=== PATIENT | female | born 1950 | race Caucasian/White ===

== ENCOUNTER 2025-02-17 11:31 | Day surgery (SDC) | payer SELFPAY ==
[2025-02-17] VITALS (8 sets, daily range): BP systolic 119–178; BP diastolic 67–94; PULSE 57–82; RESP 16; TEMP 36.1–36.6; O2SAT 98–100; BMI 27.1
[2025-02-17] MEDS: Lactated Ringers 1,000 ML 15 ML IV (12:04)
--- NOTE | 2025-02-17 12:14 | PCM.HP.STD ---
[facility] - General General Date of Admission: 02/17/25 Date of Service: 02/17/25 Chief Complaint: Screening colonoscopy with fecal incontinence and alternating bowel habits HPI Narrative DAX GODOY, is a 74 F who presents for her first colonoscopy. *BGI established 12.19.24 pt presents with alternating bowel movements and intermittent fecal incontinence with diarrhea. Pt reports that she has never had a colonoscopy. States she has increased gas and will have pressure in her rectum and feels like she needs to have a bm, but is unable. [facility] Medical History Wears glasses Wears dentures Diabetes Arthritis Low iron Fatty liver Restless legs Dietary restriction Non-smoker Leg cramps High triglycerides High cholesterol Gallstones DM type 2 (diabetes mellitus, type 2) Hypertension Hearing problem Cataracts, both eyes Anemia Home Medications ?Medication ?Instructions ?Recorded ?Last Taken ?Type ferrous sulfate 325 mg (65 mg 325 mg PO BID 12/19/24 02/13/25 History iron) tablet (FeroSul) metformin 500 mg tablet 500 mg PO QDAY 12/19/24 Unknown History pioglitazone 15 mg tablet (Actos) 15 mg PO QDAY 12/19/24 Unknown History ramipril 5 mg capsule 5 mg PO QDAY 12/19/24 02/17/25 08:30 History triamterene 75 0.5 tab PO QDAY 12/19/24 Unknown History mg-hydrochlorothiazide 50 mg tablet Allergy/AdvReac Type Severity Reaction Status Date / Time No Known Allergies Allergy Verified 02/17/25 12:00 Family History Father Cancer Mother Cancer skin cancer Brother Bleeding disorder Cancer Sister Diabetes Hypertension Surgical History H/O hernia repair H/O: hysterectomy S/P appendectomy S/P cholecystectomy Hx of tonsillectomy Social History Smoking Status: Never smoker alcohol intake: never substance use type: does not use ROS Constitutional Constitutional: Denies fatigue, fever(s), poor appetite, weight gain or weight loss Gastrointestinal Gastrointestinal: Denies belching, bloating, change in bowel habits, change in stool character, chewing difficulty, coffee ground emesis, constipation, cramping, diarrhea, dyspepsia, dysphagia, early satiety, excessive flatus, fecal incontinence, heartburn, hematemesis, hematochezia, hemorrhoids, loose stools, melena, nausea, odynophagia, rectal bleeding, tenesmus, vomiting or weight changes Vital Signs Vital Signs Vital Signs: 02/17/25 12:01 02/17/25 12:01 Temperature 97.8 F Temperature Source Temporal Pulse Rate 82 Respiratory Rate 16 Respiratory Pattern Normal Blood Pressure 178/94 H Blood Pressure Mean 122 Blood Pressure Source Monitor Blood Pressure Position Sitting Blood Pressure Location Right Arm Pulse Ox 98 Oxygen Delivery Method Room Air Weight Weight: 143 lb 4.807 oz Body Mass Index (BMI) 27.1 Physical Exam Const alert, oriented x3, no apparent distress and healthy appearing General Appearance: cooperative GI normal to inspection, nondistended, normoactive bowel sounds, soft to palpation, non-tender and non-distended Percussion: normal to percussion Rectal Exam: deferred Assessment & Plan Assessment/Plan (1) Diarrhea: (2) Anemia: PLAN: Assessment and Plan Assessment and Plan (1) Anemia: Status: Acute (2) Diarrhea: Status: Acute Plan: 74-year-old very pleasant woman with past medical history of type 2 diabetes, hypertension and new onset iron deficiency anemia. She is about a colonoscopy in the past. She is also having diarrhea that was thought to possibly secondary to diabetes medicines. However she has a history of a large cystocele that was refractory to a presary. She is concerned that maybe she has a rectocele also. She is also concerned because of a new onset iron deficiency anemia. She has not seen any blood in her stool. She has never had a colonoscopy. Her weight has been stable. Differential diagnosis for new onset iron deficiency anemia an old one will be neoplasia involving the GI tract, celiac disease, angiodysplasia, malabsorption secondary to small bacterial overgrowth from diabetes. She will undergo colonoscopy to evaluate her lower GI tract. She was explained alternatives, risk and benefits include not withstanding bleeding, infection, sepsis, perforation, need for return to . She will have an ASA of 3.
--- NOTE | 2025-02-17 12:26 | PCM.PRE.AN2 ---
ASA Classification* ASA Classification ASA Classification: 3 Assessment & Plan Anesthesia* Anesthesia Assessment Anesthesia Assessment: Discussed sedation and/or anesthesia options, risks, benefits, and alternatives with patient/parents/legal guardian/POA. Questions invited. The patient/parents/legal guardian/POA seems to understand and agrees to proceed with anesthesia plan. Reviewed the physical assessment, medical history, allergy history and patient home medications list prior to surgery/procedure/anesthetic and documented any changes. Performed airway and anesthesia risk assessments. Anesthesia Type Anesthesia Type: MAC History Source History Obtained from:: Patient and Chart Anesthesia Focused Assessment* Temperature: 97.8 F Pulse Rate: 82 Blood Pressure: 178/94 Respiratory Rate: 16 Pulse Ox: 98 Oxygen Delivery Method: Room Air Airway Assessment Mouth opens: >3 cm Mallampati Score: II Teeth Condition: Dentures (Patient has full upper and lower dentures. They will come out.) Neck Range of motion (ROM): Full ROM Labs Anesthesia Preop lab: CBC CHEMISTRY POC Glucose 84 mg/dL (74-106) 02/17/25 11:55 02/17/25 COAG Pre-Assessment Diagnosis/Proposed Procedure Planned Operative Procedure(s): COLONOSCOPY Anesthesia History Anesthesia History - cardiology technologist: Anesthesia History - cardiology technologist Hx Hospitalization No 02/14/25 13:30 Any Problems With Anesthesia No 02/14/25 13:30 Cholinesterase deficiency No 02/14/25 13:30 You/Your Family Experience No 02/14/25 13:30 fever (hyperthermia) with Relationship Recent Exposure to Contagious No 02/17/25 12:01 Disease Does patient have nerve No 02/14/25 13:30 stimulator Patient instructed to have device shut off --Does patient have Pacemaker No 02/17/25 12:01 or ICD? When Was Last Pacemaker Check QUESTION #4 FULL TEXT: You/Your Family Experience fever (hyperthermia) with Anesthesia Last Oral Intake Last Oral intake: Last Oral Intake NPO since 08:30 02/17/25 12:01 Meds taken in AM with sips of Yes 02/17/25 12:01 water? Meds patient instructed to ramipril 02/17/25 12:01 take am of surgery Any additional information?: Yes NPO since: 08:30 (Patient took med with some water at 8:30 AM.) Meds taken in AM with sips of water?: Yes PONV PONV - cardiology technologist: PONV - cardiology technologist Female Yes 02/14/25 13:30 HX of Motion Sickness No 02/14/25 13:30 HX of N/V After Surgery No 02/14/25 13:30 Non-Smoker Yes 02/14/25 13:30 Duration of Surgery greater No 02/14/25 13:30 than 60 minutes Number of Risk Factors 2 02/14/25 13:30 PONV Score Moderate Risk 02/14/25 13:30 Height & Weight Height & Weight: Anesthesia: Height & Weight Height 5 ft 1 in 02/17/25 12:01 Weight: 65 kg 02/17/25 12:01 Body Mass Index (BMI) 27.1 02/17/25 12:01 Respiratory Assessment Respiratory Assessment - cardiology technologist: Respiratory Tract Infection Hx - cardiology technologist Hx Respiratory Tract Infection No 02/14/25 13:30 STOP Sleep Apnea STOP Sleep Apnea - cardiology technologist: STOP Sleep Apnea - cardiology technologist Hx Hypertension Yes 02/14/25 13:30 Hx Sleep Apnea No 02/14/25 13:30 CPAP BIPAP Do you snore loudly (louder No 02/14/25 13:30 than talking or can be heard Do you often feel tired/ No 02/14/25 13:30 fatigued/ sleepy during daytime? Has anyone observed you stop No 02/14/25 13:30 breathing during sleep? STOP Results Negative 02/14/25 13:30 QUESTION #5 FULL TEXT : Do you snore loudly (louder than talking or can be heard through closed doors)? 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 Specify any problems Hx of Preganancy in last 3 No 02/14/25 13:30 Months Nurse Filling Out Transfusion [facility] 02/14/25 13:30 & Questions: Date: 02/14/25 02/14/25 13:30 Time: 13:44 02/14/25 13:30 Patient unable to answer at this time (ie. confused, unrespo /Reproduction History /Reproductive History - cardiology technologist: /Reproductive Hx- cardiology technologist Hx Now No 02/14/25 13:30 Gestational Age (in weeks): EDC: Hx Hx Para Hx Section SAB No 02/14/25 13:30 Active Medications Active Medications: Current Medications Generic Name Dose Route Start Last Admin Trade Name Freq PRN Reason Stop Dose Admin Lactated Ringer's 1,000 mls @ 15 mls/hr 02/17/25 11:45 02/17/25 12:04 IV 15 mls/hr .Q48H HIRA Administration PFSH Medical History Wears glasses Wears dentures Diabetes Arthritis Low iron Fatty liver Restless legs Dietary restriction Non-smoker Leg cramps High triglycerides High cholesterol Gallstones DM type 2 (diabetes mellitus, type 2) Hypertension Hearing problem Cataracts, both eyes Anemia Home Medications ?Medication ?Instructions ?Recorded ?Last Taken ?Type ferrous sulfate 325 mg (65 mg 325 mg PO BID 12/19/24 02/13/25 History iron) tablet (FeroSul) metformin 500 mg tablet 500 mg PO QDAY 12/19/24 Unknown History pioglitazone 15 mg tablet (Actos) 15 mg PO QDAY 12/19/24 Unknown History ramipril 5 mg capsule 5 mg PO QDAY 12/19/24 02/17/25 08:30 History triamterene 75 0.5 tab PO QDAY 12/19/24 Unknown History mg-hydrochlorothiazide 50 mg tablet Allergy/AdvReac Type Severity Reaction Status Date / Time No Known Allergies Allergy Verified 02/17/25 12:00 Family History Father Cancer Mother Cancer skin cancer Brother Bleeding disorder Cancer Sister Diabetes Hypertension Surgical History H/O hernia repair H/O: hysterectomy S/P appendectomy S/P cholecystectomy Hx of tonsillectomy Social History Smoking Status: Never smoker alcohol intake: never substance use type: does not use Review of Systems (Anesthesia) ROS Narrative System reviewed and no additional complaints, except as documented.
--- NOTE | 2025-02-17 12:30 | COLBX_PTH ---
PATIENT: DAX GODOY LOC: EN U#:[id number] AGE/SX: 74/F ROOM: RE02/17/[address]: Dr. Jose Posey DO : 1950 BED: DIS: 02/17/2025 SPEC #: [id number] RECD: 02/17/25 14:44 STATUS: LORIE BISI #: [id number] AG: 02/17/25 12:[address]: Jose Posey DEPT: SURGICAL PATHOLOGY RECD BY: Reji Dos Santos ENTERED: 02/20/25 11:10 SP TYPE: COLON BX JESSICA DR: Dr. Abner Silverio DO Tissues: A - COLON BIOPSY Procedures: Surgery Specimen Level IV HEADER OPERATION: Colonoscopy with biopsy PRE-OP DIAGNOSIS: Diarrhea, anemia TISSUE SUBMITTED: A- Random colon biopsy MICROSCOPIC DIAGNOSIS A. Colon, random biopsy: * Unremarkable colonic mucosa. * Negative for microscopic colitis. MICROSCOPIC DESCRIPTION Slides are reviewed. GROSS DESCRIPTION A. Received in fixative is one container labeled with the patient's name and designated Random colon biopsy. The specimen consists of multiple irregular fragments of light conklin soft tissue that in aggregate measure 0.3 to 0.5 cm. The specimen is totally submitted in one cassette. 02/20/2025 CPT:23579
--- NOTE | 2025-02-17 13:27 | PCM.POST.ANE ---
Anesthesia: Postop Eval I Current Vital Signs Temperature: 97 F Pulse Rate: 58 Blood Pressure: 126/72 Respiratory Rate: 16 Pulse Ox: 100 Oxygen Delivery Method: Room Air Assessment Airway patent: Yes Spontaneous unlabored respirations: Yes Mental status: Asleep nausea: No Vomiting: No Anesthesia Complication: No Fluid Hydration Crystalloid volume administer (ml): 500 Total IV fluid infused: 500 Progress Note Anesthesia document: Postop Eval 1 completed: Yes
--- NOTE | 2025-02-17 13:56 | OP.COLON_ITS ---
Patient Name: Kandis Dey Procedure Date: 02/17/2025 12:54 PM Date of : 1950 Age: 74 Procedure: Colonoscopy Indications: Screening for colorectal malignant neoplasm Providers: Jose Posey DO Referring MD: Abner Silverio Medicines: Monitored Anesthesia Care Patient Profile: This is a 74 year old female. Refer to note in patient chart for documentation of history and physical. Last Colonoscopy: none. The patient's first colonoscopy is today. Complications: No immediate complications. Procedure: Pre-Anesthesia Assessment: - Prior to the procedure, a History and Physical was performed, and patient medications and allergies were reviewed. The patient is competent. The risks and benefits of the procedure and the sedation options and risks were discussed with the patient. All questions were answered and informed consent was obtained. Patient identification and proposed procedure were verified by the physician in the pre-procedure area. Mental Status Examination: alert and oriented. Airway Examination: normal oropharyngeal airway and neck mobility. Respiratory Examination: clear to auscultation. CV Examination: normal. Prophylactic Antibiotics: The patient does not require prophylactic antibiotics. Prior Anticoagulants: The patient has taken no anticoagulant or antiplatelet agents except for NSAID medication. ASA Grade Assessment: II - A patient with mild systemic disease. After reviewing the risks and benefits, the patient was deemed in satisfactory condition to undergo the procedure. The anesthesia plan was to use monitored anesthesia care (MAC). Immediately prior to administration of medications, the patient was re-assessed for adequacy to receive sedatives. The heart rate, respiratory rate, oxygen saturations, blood pressure, adequacy of pulmonary ventilation, and response to care were monitored throughout the procedure. The physical status of the patient was re-assessed after the procedure. After I obtained informed consent, the scope was passed under direct vision. Throughout the procedure, the patient's blood pressure, pulse, and oxygen saturations were monitored continuously. The pediatric colonoscope was introduced through the anus and advanced to the cecum, identified by appendiceal orifice and ileocecal valve. The colonoscopy was performed without difficulty. The patient tolerated the procedure well. The quality of the bowel preparation was adequate. The ileocecal valve, appendiceal orifice, and rectum were photographed. Scope In: 1:02:12 PM Scope Withdrawal Time 0 hours 10 minutes 15 seconds Scope Out: 1:18:42 PM Total Procedure Duration Time 0 hours 16 minutes 30 seconds Findings: The perianal and digital rectal examinations were normal. An area of mildly congested mucosa was found in the recto-sigmoid colon, in the sigmoid colon, in the transverse colon and in the ascending colon. Biopsies were taken with a cold forceps for histology. Verification of patient identification for the specimen was done. Estimated blood loss was minimal. Multiple small-mouthed diverticula were found in the entire colon. Impression: - Congested mucosa in the recto-sigmoid colon, in the sigmoid colon, in the transverse colon and in the ascending colon. Biopsied. - Diverticulosis in the entire examined colon. Recommendation: - Discharge patient to home. - Resume previous diet. - Continue present medications. - Await pathology results. - No repeat colonoscopy due to age. Procedure Code(s): --- Professional --- 63735, Colonoscopy, flexible; with biopsy, single or multiple CPT copyright 2021 [employer]. All rights reserved. The codes documented in this report are preliminary and upon dope worker review may be revised to meet current compliance requirements. Jose Posey DO 02/17/2025 1:55:58 PM This report has been signed electronically. Number of Addenda: 0 Note Initiated On: 02/17/2025 12:54 PM
--- NOTE | 2025-02-17 13:56 | OP.CCLET_ITS ---
02/17/2025 Abner Silverio Re : Colonoscopy procedure for Kandis Dey Dear Nusrat This procedure was performed on Monday, February 17, 2025. My impressions and recommendations are as follows: Impressions : - Congested mucosa in the recto-sigmoid colon, in the sigmoid colon, in the transverse colon and in the ascending colon. Biopsied. - Diverticulosis in the entire examined colon. Recommendations : - Discharge patient to home. - Resume previous diet. - Continue present medications. - Await pathology results. - No repeat colonoscopy due to age. My findings are described in the full procedure note, which is enclosed. If I can be of further assistance, please feel free to contact me at . Sincerely, Jose Posey, 02/17/2025 1:55:58 PM This report has been signed electronically.
--- NOTE | 2025-02-17 14:21 | PCM.POSTANE2 ---
Anesthesia Postop Eval I Sum Postop Eval Completion status Anesthesia document: Postop Eval 1 completed: Yes Anesthesia Postop Eval I Summary Anesthesia Postop Eval I Summary: Anesthesia Postop Eval I: Assessment Summary Airway patent Yes 02/17/25 13:28 [email or web address] Spontaneous unlabored Yes 02/17/25 13:28 [email or web address] respirations Mental status Asleep 02/17/25 13:28 [email or web address] nausea No 02/17/25 13:28 [email or web address] Vomiting No 02/17/25 13:28 [email or web address] Anesthesia Postop Eval I: Fluid Summary Crystalloid volume administer 500 02/17/25 13:28 [email or web address] (ml) Colloids volume administered ( ml) Blood Product volume administered (ml) Total IV fluid infused 500 02/17/25 13:28 [email or web address] Anesthesia Postop Eval I: Summary Notes Anesthesia Complication No 02/17/25 13:28 [email or web address] Anesthesia Complication Comment: Post-operative progress note Anesthesia: Postop Eval II Evaluation Mental status: Awake Pain Level: 0 nausea: No Vomiting: No
== END 2025-02-17 14:16 | disposition home or self-care (01) ==
LOC: EN 11:31 → AC 11:35
PROVIDERS: PCP Family Medicine; Referring Provider Family Medicine; Visit Provider Internal Medicine Gastroenterology
PROC: 0DJD8ZZ Inspection of Lower Intestinal Tract, Via Natural or Artificial Opening Endoscopic (ICD-10-PCS; CPT 45378; principal; 2025-02-17 12:25)
DX: Z12.11 Encounter for screening for malignant neoplasm of colon (principal); E11.9 Type 2 diabetes mellitus without complications; R19.7 Diarrhea, unspecified; D50.9 Iron deficiency anemia, unspecified; K57.30 Diverticulosis of large intestine without perforation or abscess without bleeding; R15.9 Full incontinence of feces; E78.00 Pure hypercholesterolemia, unspecified; I10 Essential (primary) hypertension
CPT/HCPCS: 45380; 82962; 88305; J2405